=== PATIENT | female | born 1935 | race Two or more races ===

== ENCOUNTER 2021-03-11 14:41 | Emergency (ER) | payer OTHER ==
[~2021-03-11] VITALS: Ht 152.4 cm; Wt 85.3 kg
[~2021-03-11 14:41] MED LIST: ASA81 MG PO; CALTRATE 600600 MG PO; TARKA 1/2401 BOTTLE PO; ZOCOR40 MG PO
[2021-03-11] MEDS ORDERED: MEMANTINE HCL10 MG PO (14:54)
[2021-03-11] MEDS ORDERED: ROSUVASTATIN CA10 MG PO (14:54)
[2021-03-11] MEDS ORDERED: OMEPRAZOLE40 MG PO (14:54)
[2021-03-11] MEDS ORDERED: GLIMEPIRIDE1 M1 PO (14:55)
[2021-03-11] MEDS ORDERED: DULOXETINE HCL60 MG PO (14:55)
[2021-03-11] MEDS ORDERED: LOTREL 10-20 M1 EACH PO (14:56)
[2021-03-11] MEDS ORDERED: KETO10TA2 PO (20:00)
[2021-03-11] MEDS ORDERED: IBU800 MG PO (20:00)
== END 2021-03-11 21:29 | disposition home or self-care (01) ==
LOC: ER 14:41 → EDBD 15:10 → ER 15:10
DX: S22.32XA Fracture of one rib, left side, initial encounter for closed fracture (principal); S40.012A Contusion of left shoulder, initial encounter; S00.83XA Contusion of other part of head, initial encounter; S90.02XA Contusion of left ankle, initial encounter; S70.02XA Contusion of left hip, initial encounter; R10.32 Left lower quadrant pain; W18.39XA Other fall on same level, initial encounter; Y93.K1 Activity, walking an animal; Y92.017 Garden or yard in single-family (private) house as the place of occurrence of the external cause; Y99.8 Other external cause status